=== PATIENT | male | born 1990 | race African-American/Black ===

== ENCOUNTER 2017-09-29 16:59 | Emergency (ER) | payer SELFPAY ==
[~2017-09-29] VITALS: Ht 180.3 cm; Wt 80.0 kg
[2017-09-29 21:06] LABS: CLARITY URINE TURBID (CLEAR); COLOR URINE DARK YELLOW (YELLOW); KETONES URINE 4+ (NEGATIVE); LEUKOCYTE ESTERASE URINE 3+ (NEGATIVE); NITRITE URINE NEGATIVE (NEGATIVE); OCCULT BLOOD URINE 2+ (NEGATIVE); PROTEIN URINE 2+ (NEGATIVE); SPECIFIC GRAVITY URINE 1.025 (1.005-1.030)
[2017-09-29] MEDS ORDERED: SODIUM CHLORIDE 0.9% 1,000 ML IV ONE (23:16)
[2017-09-29] MEDS ORDERED: ONDANSETRON HCL 4MG/2ML VIAL IV STA (23:16)
[2017-09-29] MEDS ORDERED: KETOROLAC 30MG/ML VIAL IV STA (23:16)
[2017-09-30] MEDS ORDERED: CEFTRIAXONE SODIUM 250 MG/VIAL IV ONE (00:30)
[2017-09-30] MEDS ORDERED: AZITHROMYCIN 500 MG TABLET PO ONE (00:30)
[2017-09-30 01:35] VITALS: BP 119/65
== END 2017-09-30 01:54 | disposition home or self-care (01) ==
LOC: ER 21:47
DX: N45.3 Epididymo-orchitis (principal); N34.2 Other urethritis; F12.10 Cannabis abuse, uncomplicated
CPT/HCPCS: 76870; 81003; 87086; 93976; 96361; 96374; 96375; 99285; J0696; J1885; J2405; J7030